=== PATIENT | male | born 1985 | race Caucasian/White ===

== ENCOUNTER 2017-05-03 02:33 | Emergency (ER) | payer OTHER ==
[~2017-05-03] VITALS: Ht 190.5 cm; Wt 105.0 kg
[2017-05-03 02:40] VITALS: BP 141/84; PULSE 102; RESP 20; O2SAT 100
[2017-05-03 02:43] VITALS: O2SAT 99
[2017-05-03 03:00] VITALS: BP 128/83; PULSE 93; RESP 20; O2SAT 100
[2017-05-03] MEDS ORDERED: SODIUM CHLOR 0.9% 1000 ML INJ 1,000 ML IV ONE (03:00)
[2017-05-03] MEDS ORDERED: TETANUS/DIPHTHERIA TOXOID ADULT 0.5 ML VIAL IM ONE (03:00)
[2017-05-03] MEDS ORDERED: LIDOCAINE 1%/EPINEPHrine 1:100,000 SOLN 20 ML VIAL INFIL ONE (03:00)
--- NOTE | 2017-05-03 03:01 | PD ---
HPI Chief Complaint: Laceration/Skin Injury Time Seen by Provider: 02:50 Travel History International Travel<30 days: No Contact w/Intl Traveler<30days: No Traveled to known affect area: No History of Present Illness HPI The patient is a 31-year-old male who presents to the emergency department via EMS as a Nunez act for self-inflicted laceration to the left upper extremity. The patient states he felt like killing himself earlier tonight, he took a kitchen knife and cut a large laceration at the lateral aspect of his left upper extremity. EMS states they were unable to control the bleeding with pressure, therefore, applied a tourniquet prior to arrival. The patient does complain of pain on the left upper extremity with numbness after the tourniquet was applied. Last tetanus shot is unknown. He denies any history of chronic psychiatric disorders, currently takes no medications. When asked why he wanted to kill himself he states "I have a lot of stuff going on " . He does admit to drinking alcohol earlier tonight, denies any illicit drug use. He now states he is remorseful and no longer suicidal. He denies any homicidal ideation, hallucinations, or delusions. The police then noted that the patient cut himself with a kitchen knife on his bicep causing a large laceration. [facility] Past Medical History Medical History: Denies Significant Hx Tetanus Vaccination: Unknown Past Surgical History Surgical History: No Previous Surgery Social History Alcohol Use: Yes Tobacco Use: Yes Substance Use: No Allergies-Medications (Allergen,Severity, Reaction): Coded Allergies: No Known Allergies (Verified Allergy, Unknown, 05/03/17) Review of Systems Except as stated in HPI: all other systems reviewed are Neg General / Constitutional: No: Fever HENT: Positive: Lightheadedness Cardiovascular: No: Chest Pain or Discomfort Respiratory: No: Shortness of Breath Gastrointestinal: No: Nausea, Vomiting Musculoskeletal: Positive: Pain Skin: Positive Other Neurologic: Positive: Paresthesia, Sensory Disturbance Psychiatric: Positive: Suicidal Ideations, Substance Abuse (alcohol abuse earlier tonight) Physical Exam Narrative GENERAL: Awake, alert, 31-year-old male appears his stated age and is in no acute respiratory distress. SKIN: Focused skin assessment warm/dry. 9 cm laceration to left upper extremity over the mid aspect of the biceps extending laterally. There is visible muscle involvement. Small arterial superficial bleeder. HEAD: Atraumatic. Normocephalic. EYES: Pupils equal and round. No scleral icterus. No injection or drainage. ENT: No nasal bleeding or discharge. Mucous membranes pink and moist. NECK: Trachea midline. No JVD. CARDIOVASCULAR: Regular, tachycardic with a heart rate of 105. RESPIRATORY: No accessory muscle use. Clear to auscultation. Breath sounds equal bilaterally. GASTROINTESTINAL: Abdomen soft, non-tender, nondistended. MUSCULOSKELETAL: No obvious deformities. No clubbing. No cyanosis. No edema. 9 cm laceration to left upper extremity going from the mid bicep over the lateral aspect. It does go down to the muscle fascial layer, no visible tendon involvement. There is a small arterial bleeder. He is able fully flex and extend the left wrist as well as supinate and pronate the left forearm. Intrinsic and muscles are intact. Bounding left radial pulse. NEUROLOGICAL: Awake and alert. No obvious cranial nerve deficits. Motor grossly within normal limits. Normal speech. Sensation is intact to the median , radial, and ulnar distribution of the left upper extremity. PSYCHIATRIC: Appropriate mood and affect; insight and judgment normal. Data Data Last Documented VS Vital Signs Date Time Temp Pulse Resp B/P (MAP) Pulse Ox O2 Delivery O2 Flow Rate FiO2 05/03/17 03:00 93 20 128/83 (98) 100 Nasal Cannula 2.00 Orders Orders Complete Blood Count With Diff (05/03/17 02:50) Comprehensive Metabolic Panel (05/03/17 02:50) Psych Screen (05/03/17 02:50) Drug Screen, Random Urine (05/03/17 02:50) Alcohol (Ethanol) (05/03/17 02:50) Sodium Chlor 0.9% 1000 Ml Inj (Ns 1000 M (05/03/17 03:00) Lidocai-Epi 1%-1:100,000 Inj (Xylocaine- (05/03/17 03:00) Tetanus/Diphtheria Tox Adult (Tetanus/Di (05/03/17 03:00) Potassium Chloride (Kcl) (05/03/17 04:15) Labs Laboratory Tests Test 05/03/17 02:50 White Blood Count 4.5 TH/MM3 Red Blood Count 4.10 MIL/MM3 Hemoglobin 13.6 GM/DL Hematocrit 38.7 % Mean Corpuscular Volume 94.4 FL Mean Corpuscular Hemoglobin 33.2 PG Mean Corpuscular Hemoglobin Concent 35.2 % Red Cell Distribution Width 12.4 % Platelet Count 256 TH/MM3 Mean Platelet Volume 6.5 FL Neutrophils (%) (Auto) 42.7 % Lymphocytes (%) (Auto) 46.3 % Monocytes (%) (Auto) 7.7 % Eosinophils (%) (Auto) 2.0 % Basophils (%) (Auto) 1.3 % Neutrophils # (Auto) 1.9 TH/MM3 Lymphocytes # (Auto) 2.1 TH/MM3 Monocytes # (Auto) 0.3 TH/MM3 Eosinophils # (Auto) 0.1 TH/MM3 Basophils # (Auto) 0.1 TH/MM3 CBC Comment DIFF FINAL Differential Comment Blood Urea Nitrogen 9 MG/DL Creatinine 0.96 MG/DL Random Glucose 113 MG/DL Total Protein 7.9 GM/DL Albumin 4.0 GM/DL Calcium Level 8.3 MG/DL Alkaline Phosphatase 56 U/L Aspartate Amino Transf (AST/SGOT) 15 U/L Alanine Aminotransferase (ALT/SGPT) 21 U/L Total Bilirubin 0.2 MG/DL Sodium Level 141 MEQ/L Potassium Level 3.3 MEQ/L Chloride Level 110 MEQ/L Carbon Dioxide Level 21.7 MEQ/L Anion Gap 9 MEQ/L Estimat Glomerular Filtration Rate 93 ML/MIN Ethyl Alcohol Level 276 MG/DL MDM Medical Decision Making Medical Screen Exam Complete: Yes Emergency Medical Condition: Yes Medical Record Reviewed: Yes Interpretation(s) Laboratory Tests Test 05/03/17 02:50 White Blood Count 4.5 TH/MM3 Red Blood Count 4.10 MIL/MM3 Hemoglobin 13.6 GM/DL Hematocrit 38.7 % Mean Corpuscular Volume 94.4 FL Mean Corpuscular Hemoglobin 33.2 PG Mean Corpuscular Hemoglobin Concent 35.2 % Red Cell Distribution Width 12.4 % Platelet Count 256 TH/MM3 Mean Platelet Volume 6.5 FL Neutrophils (%) (Auto) 42.7 % Lymphocytes (%) (Auto) 46.3 % Monocytes (%) (Auto) 7.7 % Eosinophils (%) (Auto) 2.0 % Basophils (%) (Auto) 1.3 % Neutrophils # (Auto) 1.9 TH/MM3 Lymphocytes # (Auto) 2.1 TH/MM3 Monocytes # (Auto) 0.3 TH/MM3 Eosinophils # (Auto) 0.1 TH/MM3 Basophils # (Auto) 0.1 TH/MM3 CBC Comment DIFF FINAL Differential Comment Blood Urea Nitrogen 9 MG/DL Creatinine 0.96 MG/DL Random Glucose 113 MG/DL Total Protein 7.9 GM/DL Albumin 4.0 GM/DL Calcium Level 8.3 MG/DL Alkaline Phosphatase 56 U/L Aspartate Amino Transf (AST/SGOT) 15 U/L Alanine Aminotransferase (ALT/SGPT) 21 U/L Total Bilirubin 0.2 MG/DL Sodium Level 141 MEQ/L Potassium Level 3.3 MEQ/L Chloride Level 110 MEQ/L Carbon Dioxide Level 21.7 MEQ/L Anion Gap 9 MEQ/L Estimat Glomerular Filtration Rate 93 ML/MIN Ethyl Alcohol Level 276 MG/DL Differential Diagnosis Differential diagnosis includes adjustment reaction, stress reaction, self- inflicted laceration, arterial injury, venous injury, tendon injury, president disorder NOS, acute alcohol intoxication, substance induced mood disorder. Narrative Course Upon arrival large-bore IV was established, labs are drawn and sent, the patient was placed on cardiac telemetry monitoring and continuous pulse oximetry monitoring. The tourniquet was removed, the patient's left radial pulse was intact, intrinsic and muscles are intact. The patient has superficial arterial bleeder in the subcutaneous today's tissue that was tied off using 4-0 Vicryl with a hand tied. The patient's laceration was then irrigated, anesthetized 1% lidocaine with epinephrine using a 27-gauge needle, and sutured by the physician personnel assistant, Daniel Azevedo. Please refer to the procedure no. Alcohol level was sent to lab. Psychiatric evaluation was ordered. Alcohol level was elevated at 276. The patient is medically cleared to be evaluated by psychiatry. He should've the sandra removed in 10 days. The patient's potassium was 3.3, therefore, was replaced orally. The patient is medically cleared to be evaluated by psychiatry. Diagnosis Primary Impression: Substance induced mood disorder Additional Impressions: Laceration of left upper arm Qualified Codes: S41.112A - Laceration without foreign body of left upper arm , initial encounter Acute alcohol intoxication Qualified Codes: F10.929 - Alcohol use, unspecified with intoxication, unspecified Condition: Stable Memo Carrasco MD May 03, 2017 03:01
[2017-05-03 03:14] LABS: AUTOMATED NEUTROPHIL # 1.9 TH/MM3 (1.8-7.7); BASOPHIL # 0.1 TH/MM3 (0-0.2); BASOPHIL % 1.3 % (0.0-2.0); EOSINOPHIL # 0.1 TH/MM3 (0-0.4); HEMATOCRIT 38.7 % (39.0-51.0); HEMOGLOBIN 13.6 GM/DL (13.0-17.0); LYMPH % 46.3 % (9.0-44.0); LYMPHOCYTE # 2.1 TH/MM3 (1.0-4.8); MEAN CELL VOLUME 94.4 FL (80.0-100.0); MEAN CORPUSCULAR HEMOGLOBIN 33.2 PG (27.0-34.0); MEAN CORPUSCULAR HGB CONC 35.2 % (32.0-36.0); MEAN PLATELET VOLUME 6.5 FL (7.0-11.0); MONO % 7.7 % (0.0-8.0); MONOCYTE # 0.3 TH/MM3 (0-0.9); NEUT % 42.7 % (16.0-70.0); PLATELET COUNT 256 TH/MM3 (150-450); RED CELL DISTRIBUTION WIDTH 12.4 % (11.6-17.2); WHITE BLOOD COUNT 4.5 TH/MM3 (4.0-11.0)
--- NOTE | 2017-05-03 03:23 | PD ---
Physical Exam Date Seen by Provider: May 03, 2017 Time Seen by Provider: 03:19 Narrative Skin: Patient has a 9 cm deep laceration to the left upper outer arm. Patient has active arterial bleeding. The laceration goes down through the subcutaneous tissues down into the muscle belly. Patient is neurovascularly intact distally. Data Data Last Documented VS Vital Signs Date Time Temp Pulse Resp B/P (MAP) Pulse Ox O2 Delivery O2 Flow Rate FiO2 05/03/17 03:00 93 20 128/83 (98) 100 Nasal Cannula 2.00 Orders Orders Complete Blood Count With Diff (05/03/17 02:50) Comprehensive Metabolic Panel (05/03/17 02:50) Psych Screen (05/03/17 02:50) Drug Screen, Random Urine (05/03/17 02:50) Alcohol (Ethanol) (05/03/17 02:50) Sodium Chlor 0.9% 1000 Ml Inj (Ns 1000 M (05/03/17 03:00) Lidocai-Epi 1%-1:100,000 Inj (Xylocaine- (05/03/17 03:00) Tetanus/Diphtheria Tox Adult (Tetanus/Di (05/03/17 03:00) Labs Laboratory Tests Test 05/03/17 02:50 White Blood Count 4.5 TH/MM3 Red Blood Count 4.10 MIL/MM3 Hemoglobin 13.6 GM/DL Hematocrit 38.7 % Mean Corpuscular Volume 94.4 FL Mean Corpuscular Hemoglobin 33.2 PG Mean Corpuscular Hemoglobin Concent 35.2 % Red Cell Distribution Width 12.4 % Platelet Count 256 TH/MM3 Mean Platelet Volume 6.5 FL Neutrophils (%) (Auto) 42.7 % Lymphocytes (%) (Auto) 46.3 % Monocytes (%) (Auto) 7.7 % Eosinophils (%) (Auto) 2.0 % Basophils (%) (Auto) 1.3 % Neutrophils # (Auto) 1.9 TH/MM3 Lymphocytes # (Auto) 2.1 TH/MM3 Monocytes # (Auto) 0.3 TH/MM3 Eosinophils # (Auto) 0.1 TH/MM3 Basophils # (Auto) 0.1 TH/MM3 CBC Comment DIFF FINAL Differential Comment MDM Medical Record Reviewed: Yes Supervised Visit with DOROTHY: Yes Interpretation(s) Laboratory Tests Test 05/03/17 02:50 White Blood Count 4.5 TH/MM3 Red Blood Count 4.10 MIL/MM3 Hemoglobin 13.6 GM/DL Hematocrit 38.7 % Mean Corpuscular Volume 94.4 FL Mean Corpuscular Hemoglobin 33.2 PG Mean Corpuscular Hemoglobin Concent 35.2 % Red Cell Distribution Width 12.4 % Platelet Count 256 TH/MM3 Mean Platelet Volume 6.5 FL Neutrophils (%) (Auto) 42.7 % Lymphocytes (%) (Auto) 46.3 % Monocytes (%) (Auto) 7.7 % Eosinophils (%) (Auto) 2.0 % Basophils (%) (Auto) 1.3 % Neutrophils # (Auto) 1.9 TH/MM3 Lymphocytes # (Auto) 2.1 TH/MM3 Monocytes # (Auto) 0.3 TH/MM3 Eosinophils # (Auto) 0.1 TH/MM3 Basophils # (Auto) 0.1 TH/MM3 CBC Comment DIFF FINAL Differential Comment Differential Diagnosis MDM: High Differential diagnoses: Fracture, sprain, strain, dislocation, contusion, neurovascular injury Narrative Course Patient's laceration is closed Procedures Procedure Narrative LACERATION LOCATION: Left upper outer arm LENGTH: 9 cm NUMBER OF STITCHES/SANDRA: 20 REPAIR: The area of the laceration was prepped with Betadine and sterilely draped. The laceration was infiltrated with 1% lidocaine with epinephrine. The wound was copiously irrigated and explored without evidence of foreign body , tendon injury injury. No nerve injury. The patient has a tear a bleeder in his upper outer arm. It is ligated with 3-0 Vicryl. The muscle fascia is closed using 3-0 Vicryl suture. The subcutaneous tissues are closed using 3-0 Vicryl suture. The skin was closed using sandra. This was a 3 layer repair. A sterile dressing was applied. The patient was advised to keep the dressing clean and dry. Patient tolerated the procedure well. Diagnosis Primary Impression: Substance induced mood disorder Additional Impression: Laceration of left upper arm Qualified Codes: S41.112A - Laceration without foreign body of left upper arm , initial encounter Condition: Stable Martir Azevedo May 03, 2017 03:23
[2017-05-03 03:40] LABS: ALT (GPT) 21 U/L (12-78); AST (GOT) 15 U/L (15-37); BICARBONATE 21.7 MEQ/L (21.0-32.0); BLOOD UREA NITROGEN 9 MG/DL (7-18); CALCIUM 8.3 MG/DL (8.5-10.1); CHLORIDE 110 MEQ/L (98-107); CREATININE 0.96 MG/DL (0.60-1.30); GLOMERULAR FILTRATION RATE 93 ML/MIN (>89); GLUCOSE,RANDOM 113 MG/DL (74-106); SODIUM (NA) 141 MEQ/L (136-145)
[2017-05-03 03:42] LABS: ALKALINE PHOSPHATASE 56 U/L (45-117); TOTAL BILIRUBIN ADULT 0.2 MG/DL (0.2-1.0); TOTAL PROTEIN 7.9 GM/DL (6.4-8.2)
[2017-05-03] MEDS ORDERED: POTASSIUM CHLORIDE 20 MEQ CONTROLLED RELEASE TAB PO ONE (04:15)
[2017-05-03 06:34] VITALS: BP 123/61; PULSE 90; RESP 17; TEMP 98.5; O2SAT 98
[2017-05-03] MEDS ORDERED: NICOTINE 21 MG/24 HR PATCH T-DERMAL ONE (09:30)
[2017-05-03 10:29] VITALS: BP 120/73; PULSE 88; RESP 18; O2SAT 98
--- NOTE | 2017-05-03 12:22 | PD ---
Physical Exam Time Seen by Provider: 12:20 Narrative Please refer to previous providers documentation for details surrounding the patient's current visit Data Data Last Documented VS Vital Signs Date Time Temp Pulse Resp B/P (MAP) Pulse Ox O2 Delivery O2 Flow Rate FiO2 05/03/17 10:29 88 18 120/73 (89) 98 Room Air 05/03/17 06:34 98.5 05/03/17 03:00 2.00 Orders Orders Complete Blood Count With Diff (05/03/17 02:50) Comprehensive Metabolic Panel (05/03/17 02:50) Psych Screen (05/03/17 02:50) Drug Screen, Random Urine (05/03/17 02:50) Alcohol (Ethanol) (05/03/17 02:50) Sodium Chlor 0.9% 1000 Ml Inj (Ns 1000 M (05/03/17 03:00) Lidocai-Epi 1%-1:100,000 Inj (Xylocaine- (05/03/17 03:00) Tetanus/Diphtheria Tox Adult (Tetanus/Di (05/03/17 03:00) Potassium Chloride (Kcl) (05/03/17 04:15) Diet Regular Basic (05/03/17 Breakfast) Diet Regular Basic (05/03/17 Lunch) Nicotine 21 Mg Patch.24 Hr (Habitrol 21 (05/03/17 09:30) Remove Old Patch (05/03/17 21:00) Ed Discharge Order (05/03/17 12:20) Labs Laboratory Tests Test 05/03/17 02:50 White Blood Count 4.5 TH/MM3 Red Blood Count 4.10 MIL/MM3 Hemoglobin 13.6 GM/DL Hematocrit 38.7 % Mean Corpuscular Volume 94.4 FL Mean Corpuscular Hemoglobin 33.2 PG Mean Corpuscular Hemoglobin Concent 35.2 % Red Cell Distribution Width 12.4 % Platelet Count 256 TH/MM3 Mean Platelet Volume 6.5 FL Neutrophils (%) (Auto) 42.7 % Lymphocytes (%) (Auto) 46.3 % Monocytes (%) (Auto) 7.7 % Eosinophils (%) (Auto) 2.0 % Basophils (%) (Auto) 1.3 % Neutrophils # (Auto) 1.9 TH/MM3 Lymphocytes # (Auto) 2.1 TH/MM3 Monocytes # (Auto) 0.3 TH/MM3 Eosinophils # (Auto) 0.1 TH/MM3 Basophils # (Auto) 0.1 TH/MM3 CBC Comment DIFF FINAL Differential Comment Blood Urea Nitrogen 9 MG/DL Creatinine 0.96 MG/DL Random Glucose 113 MG/DL Total Protein 7.9 GM/DL Albumin 4.0 GM/DL Calcium Level 8.3 MG/DL Alkaline Phosphatase 56 U/L Aspartate Amino Transf (AST/SGOT) 15 U/L Alanine Aminotransferase (ALT/SGPT) 21 U/L Total Bilirubin 0.2 MG/DL Sodium Level 141 MEQ/L Potassium Level 3.3 MEQ/L Chloride Level 110 MEQ/L Carbon Dioxide Level 21.7 MEQ/L Anion Gap 9 MEQ/L Estimat Glomerular Filtration Rate 93 ML/MIN Ethyl Alcohol Level 276 MG/DL [facility] Medical Record Reviewed: Yes Supervised Visit with DOROTHY: No Narrative Course Patient presented to emergency department under Nunez. He was previously medically cleared. Psychiatry has seen him and has lifted the Nunez act. Patient will be discharged at this time with no further emergent medical needs. Diagnosis Primary Impression: Substance induced mood disorder Additional Impressions: Laceration of left upper arm Qualified Codes: S41.112A - Laceration without foreign body of left upper arm , initial encounter Acute alcohol intoxication Qualified Codes: F10.929 - Alcohol use, unspecified with intoxication, unspecified Disposition: 01 DISCHARGE HOME Condition: Stable Linette Orozco May 03, 2017 12:22
--- NOTE | 2017-05-03 12:23 | PD ---
History of Present Illness Chief Complaint: Laceration/Skin Injury Time Seen by Provider: 12:15 Travel History International Travel<30 Days: No Contact w/Intl Traveler<30days: No Known affected area: No Legal Status Legal Status: Nunez Act Nunez Act Signed By: Rebecca Nunez Act Comment: 2016 @ ??? History of Present Illness: 31-year-old male presents under a Nunez act for suicidal threats and cutting himself. Patient is no longer intoxicated (blood alcohol level reviewed from last night) and he denies any suicidal or homicidal ideation, plan or intent. He states he didn't really mean to cut himself last night. He has no psychotic symptoms and his cognition is intact. He is verbally cayden for safety and he is competent to do so. Nurse Louis has spoken with his mother and sister and they want him released to their care and are willing to take responsibility for watching over him. PFSH Past Medical History Medical History: Denies Significant Hx Tetanus Vaccination: Unknown Past Surgical History Surgical History: No Previous Surgery Psychiatric History Psychiatric History Hx Psychiatric Treatment: DENIES History of Inpatient Treatment: No Guns or firearms in home: No Social History Hx Alcohol Use: Yes Hx Tobacco Use: Yes Hx Substance Use: No Substance Use Type: Alcohol Hx of Substance Use Treatment: No Allergies-Medications (Allergen,Severity, Reaction): Coded Allergies: No Known Allergies (Verified Allergy, Unknown, 05/03/17) Review of Systems Except as stated in HPI: all other systems reviewed are Neg Mental Status Examination Appearance: Appropriate Consciousness: Alert Orientation: x4 Motor Activity: Normal gait Speech: Unremarkable Language: Adequate Fund of Knowledge: Adequate Attention and Concentration: Adequate Memory: Unremarkable Mood: Appropriate Affect: Appropriate Thought Process & Associations: Intact Thought Content: Appropriate Hallucination Type: None Delusion Type: None Suicidal Ideation: No Suicidal Plan: No Suicidal Intention: No Homicidal Ideation: No Homicidal Plan: No Homicidal Intention: No Insight: Adequate Judgment: Adequate MDM Medical Decision Making Medical Record Reviewed: Yes Assessment/Plan Patient interviewed at bedside. Medical record reviewed. Case discussed with nurse Cao. Patient does not meet criteria for Nunez act or involuntary psychiatric hospitalization at this time. He was advised to discontinue his alcohol use and seek outpatient therapy. Orders Orders Complete Blood Count With Diff (05/03/17 02:50) Comprehensive Metabolic Panel (05/03/17 02:50) Psych Screen (05/03/17 02:50) Drug Screen, Random Urine (05/03/17 02:50) Alcohol (Ethanol) (05/03/17 02:50) Sodium Chlor 0.9% 1000 Ml Inj (Ns 1000 M (05/03/17 03:00) Lidocai-Epi 1%-1:100,000 Inj (Xylocaine- (05/03/17 03:00) Tetanus/Diphtheria Tox Adult (Tetanus/Di (05/03/17 03:00) Potassium Chloride (Kcl) (05/03/17 04:15) Diet Regular Basic (05/03/17 Breakfast) Diet Regular Basic (05/03/17 Lunch) Nicotine 21 Mg Patch.24 Hr (Habitrol 21 (05/03/17 09:30) Remove Old Patch (05/03/17 21:00) Results Vital Signs Date Time Temp Pulse Resp B/P (MAP) Pulse Ox O2 Delivery O2 Flow Rate FiO2 05/03/17 10:29 88 18 120/73 (89) 98 Room Air 05/03/17 06:34 98.5 90 17 123/61 (81) 98 Room Air 05/03/17 03:00 93 20 128/83 (98) 100 Nasal Cannula 2.00 05/03/17 02:43 99 Nasal Cannula 2.00 05/03/17 02:40 102 20 141/84 (103) 100 Laboratory Tests Test 05/03/17 02:50 White Blood Count 4.5 Red Blood Count 4.10 Hemoglobin 13.6 Hematocrit 38.7 Mean Corpuscular Volume 94.4 Mean Corpuscular Hemoglobin 33.2 Mean Corpuscular Hemoglobin Concent 35.2 Red Cell Distribution Width 12.4 Platelet Count 256 Mean Platelet Volume 6.5 Neutrophils (%) (Auto) 42.7 Lymphocytes (%) (Auto) 46.3 Monocytes (%) (Auto) 7.7 Eosinophils (%) (Auto) 2.0 Basophils (%) (Auto) 1.3 Neutrophils # (Auto) 1.9 Lymphocytes # (Auto) 2.1 Monocytes # (Auto) 0.3 Eosinophils # (Auto) 0.1 Basophils # (Auto) 0.1 CBC Comment DIFF FINAL Differential Comment Blood Urea Nitrogen 9 Creatinine 0.96 Random Glucose 113 Total Protein 7.9 Albumin 4.0 Calcium Level 8.3 Alkaline Phosphatase 56 Aspartate Amino Transf (AST/SGOT) 15 Alanine Aminotransferase (ALT/SGPT) 21 Total Bilirubin 0.2 Sodium Level 141 Potassium Level 3.3 Chloride Level 110 Carbon Dioxide Level 21.7 Anion Gap 9 Estimat Glomerular Filtration Rate 93 Ethyl Alcohol Level 276 Diagnosis Primary Impression: Alcohol abuse Condition: Stable Simon Mann MD May 03, 2017 12:23
[2017-05-03] MEDS ORDERED: REMOVE OLD NICODERM (NICOTINE) PATCH T-DERMAL ONE (21:00)
== END 2017-05-03 12:41 | disposition home or self-care (01) ==
LOC: NEPE 02:33 → NEPJ 12:41
DX: F19.94 Other psychoactive substance use, unspecified with psychoactive substance-induced mood disorder (principal); S41.112A Laceration without foreign body of left upper arm, initial encounter; F10.129 Alcohol abuse with intoxication, unspecified; Z23 Encounter for immunization; Z72.0 Tobacco use; X78.1XXA Intentional self-harm by knife, initial encounter
CPT/HCPCS: 12034; 80053; 80307; 85025; 90471; 90714; 96360; 99284; J7030